=== PATIENT | female | born 1970 | race Caucasian/White ===

== ENCOUNTER 2023-08-25 08:23 | Day surgery (SDC) | payer OTHER ==
[~2023-08-25] VITALS: Ht 162.6 cm; Wt 59.9 kg
[~2023-08-25 08:23] MED LIST: ADV250INH INH; ALBU8.5H INH; ATOR1TAB19 PO; DULO1CAP6 PO; GABA-284 PO; LISI10TA22 PO; PANT20TA6 PO; TRAZ150T90 PO
[2023-08-25] MEDS ORDERED: ROCURONIUM BROMIDE 50MG/5ML VIAL As Ordered ONE (10:22)
[2023-08-25] MEDS ORDERED: MIDAZOLAM INJ 2MG/2ML VIAL As Ordered ONE (10:22)
[2023-08-25] MEDS ORDERED: propofoL 200 MG/20 ML VIAL As Ordered ONE (10:22)
[2023-08-25] MEDS ORDERED: LIDOCAINE 2% 100MG/5ML SDV (FOR ANES.) As Ordered ONE (10:22)
[2023-08-25] MEDS ORDERED: fentaNYL 100 MCG/2 ML INJECTION As Ordered ONE (10:23)
[2023-08-25] MEDS ORDERED: PHENYLEPHRINE 0.5% NASAL SPRAY 15 ML As Ordered ONE (10:26)
[2023-08-25] MEDS ORDERED: ONDANSETRON 4MG 2ML VIAL As Ordered ONE (10:50)
[2023-08-25] MEDS ORDERED: ACETAMINOPHEN 1000MG 100ML IV BAG As Ordered ONE (10:50)
[2023-08-25] MEDS ORDERED: KETOROLAC 60MG 2ML VIAL As Ordered ONE (10:50)
[2023-08-25] MEDS: LIDOCAINE W/EPINEPHRINE 1% 20ML VIAL As Ordered ONE (10:53)
[2023-08-25] MEDS ORDERED: SUGAMMADEX SODIUM 500 MG/5 ML VIAL (BRIDION) As Ordered ONE (10:56)
[2023-08-25] MEDS ORDERED: ONDANSETRON 4MG 2ML VIAL IV PRN (11:30)
[2023-08-25] MEDS ORDERED: oxyCODONE 5MG TAB PO PRN (11:30)
[2023-08-25] MEDS: fentaNYL 100 MCG/2 ML INJECTION IV PRN (11:53)
[2023-08-25] MEDS ORDERED: fentaNYL 100 MCG/2 ML INJECTION IV PRN (11:55)
[2023-08-25 13:15] VITALS: BP 117/65; TEMP 97.2; O2SAT 96
== END 2023-08-25 13:25 | disposition home or self-care (01) ==
LOC: M SDC 08:23
PROVIDERS: ATTEND Dentist Oral and Maxillofacial Surgery
DX: K02.9 Dental caries, unspecified (principal); I10 Essential (primary) hypertension; E78.5 Hyperlipidemia, unspecified; K21.9 Gastro-esophageal reflux disease without esophagitis; J44.9 Chronic obstructive pulmonary disease, unspecified; F17.210 Nicotine dependence, cigarettes, uncomplicated; F41.9 Anxiety disorder, unspecified; Z79.51 Long term (current) use of inhaled steroids; Z79.899 Other long term (current) drug therapy
CPT/HCPCS: 88300; D7210; D9223; J0131; J1100; J1885; J2250; J2405; J3010